=== PATIENT | female | born 1950 | race Two or more races ===

== ENCOUNTER 2019-10-09 11:29 | Outpatient (RCR) | payer MEDICARE, MEDICAID ==
[~2019-10-09] VITALS: Ht 154.9 cm; Wt 94.3 kg
== END 2019-10-14 | disposition home or self-care (01) ==
LOC: WCC 11:29
DX: L97.812 Non-pressure chronic ulcer of other part of right lower leg with fat layer exposed (principal); I87.311 Chronic venous hypertension (idiopathic) with ulcer of right lower extremity
CPT/HCPCS: 11042; 11045; 29580; 93922

== ENCOUNTER 2019-10-16 09:45 | Outpatient (RCR) | payer MEDICARE, MEDICAID ==
[~2019-10-16] VITALS: Ht 154.9 cm; Wt 94.3 kg
== END 2019-11-14 | disposition home or self-care (01) ==
LOC: WCC 09:45
DX: L97.812 Non-pressure chronic ulcer of other part of right lower leg with fat layer exposed (principal); I87.311 Chronic venous hypertension (idiopathic) with ulcer of right lower extremity; I10 Essential (primary) hypertension; Z86.73 Personal history of transient ischemic attack (TIA), and cerebral infarction without residual deficits; Z79.899 Other long term (current) drug therapy
CPT/HCPCS: 11042; 11045; 15271; 15272; 29580; Q4106; Q4133; Q4101

== ENCOUNTER 2019-11-17 09:55 | Outpatient (RCR) | payer MEDICARE, MEDICAID | END 2019-12-15 | disposition home or self-care (01) | LOC: WCC 09:55 | DX: L97.812 Non-pressure chronic ulcer of other part of right lower leg with fat layer exposed (principal); I87.311 Chronic venous hypertension (idiopathic) with ulcer of right lower extremity; I10 Essential (primary) hypertension; Z86.73 Personal history of transient ischemic attack (TIA), and cerebral infarction without residual deficits | CPT/HCPCS: 15271; 29580; G0463; Q4133 ==